=== PATIENT | male | born 1940 ===

== ENCOUNTER 2023-02-21 08:56 | Day surgery (SDC) | payer OTHER ==
[2023-02-03 09:42] LABS: HEMATOCRIT 43.5 % (39.0-48.0); MEAN CELL VOLUME 82.5 fL (80.0-100.00); MEAN CORPUSCULAR HEMOGLOBIN 26.6 pg (27.00-32.0); MEAN CORPUSCULAR HGB CONC 32.2 g/dl (32.0-36.0); PLATELET COUNT 341 K/uL (150-450); RED BLOOD COUNT 5.28 M/uL (4.00-6.00); RED CELL DISTRIBUTION WIDTH 14.4 % (11.5-14.5)
[2023-02-03 10:03] LABS: URINE APPEARANCE Clear; URINE BILIRRUBIN Negative (NEGATIVE); URINE BLOOD Trace; URINE COLOR Yellow; URINE GLUCOSE Negative (NEGATIVE); URINE LEUKOCYTE Moderate; URINE NITRATE Negative; URINE PROTEIN Trace (NEGATIVE); URINE UROBILINOGEN 0.2 E.U./dl
[2023-02-03 10:05] LABS: URINE BACTERIA 1916.1 uL (0.0-1933); URINE WBC 375.3 uL (0.0-23.2)
[2023-02-03 10:06] LABS: INR 1.03; PARTIAL THROMBOPLASTIN TIME 29.1 SECONDS (22.0-34.0); PROTHROMBIN TIME 10.8 SECONDS (9.0-11.5)
[2023-02-03 10:25] LABS: CALCIUM 9.3 mg/dL (8.5-10.1); CREATININE SERUM 0.76 mg/dL (0.70-1.30); GFR 98.68; POTASSIUM 4.31 mEq/L (3.5-5.1)
[~2023-02-21 08:56] MED LIST: COZAAR50 MG PO; METFORMIN HCL500 M3 PO; TAMS0.4C PO; ZOCOR20 MG PO
[2023-02-21] MEDS ORDERED: PYRIDIUM DS200 MG PO (15:19)
[2023-02-21] MEDS ORDERED: LEVOFLOXACIN500 MG PO (15:19)
[2023-02-21] MEDS ORDERED: DICLOFENAC SODI50 MG PO (15:20)
== END 2023-02-21 18:30 | disposition home or self-care (01) ==
LOC: CIR.AMB 08:56
PROVIDERS: ATTEND Surgery
DX: C67.9 Malignant neoplasm of bladder, unspecified (principal); D18.09 Hemangioma of other sites; Z20.822 Contact with and (suspected) exposure to COVID-19; E11.9 Type 2 diabetes mellitus without complications